=== PATIENT | male | born 1965 | race Hispanic/Latino ===

== ENCOUNTER 2018-04-02 09:34 | Outpatient (CLI) | payer BC ==
--- NOTE | 2018-04-02 10:43 | Cat Scan Report ---
FINAL REPORT EXAM: CT ABDOMEN PELVIS WO CON HISTORY: HEMATURIA TECHNIQUE: CT of the abdomen and pelvis without IV contrast. Coronal and sagittal reconstructed imaging provided. PRIORS: None currently available. FINDINGS: ABDOMEN: Liver, gallbladder, stomach, spleen, pancreas, and adrenals are unremarkable. Kidneys: Unremarkable. No hydronephrosis. No nephroureteral stones. No perinephric stranding. There is no abdominal aortic aneurysm. Mild atherosclerotic disease noted. IVC is unremarkable. There is no periaortic or retroperitoneal adenopathy or mass. Plax-zb-[id number] stool. No wall thickening or inflammatory changes. Terminal ilium is unremarkable. Appendix is normal. Small bowel loops are unremarkable. No obstructive pattern. No free air. No free fluid. Mesentery is unremarkable. Fat-containing umbilical hernia without strangulation. PELVIS: Right anterior pelvic residual implant or surgical device noted. Limited CT images of the prostate appears grossly within normal limits. Punctate calcifications. Bladder is unremarkable. No wall thickening. No stone. There is no pelvic mass or adenopathy. Inguinal regions are unremarkable. Bones: No suspicious osseous lesions on this limited examination of the skeleton. Metastatic disease better evaluated with bone scan. IMPRESSION: Right anterior pelvic residual implant or surgical device. Otherwise, no acute findings.
== END 2018-04-02 09:35 | disposition home or self-care (01) ==
LOC: CT 09:34
PROVIDERS: ATTEND Urology
DX: R31.29 Other microscopic hematuria (principal); J45.909 Unspecified asthma, uncomplicated; I10 Essential (primary) hypertension; E78.00 Pure hypercholesterolemia, unspecified; Z87.891 Personal history of nicotine dependence; Z96.0 Presence of urogenital implants; Z98.890 Other specified postprocedural states
CPT/HCPCS: 74176

== ENCOUNTER 2018-05-05 06:01 | Observation (INO) | payer BC ==
[2018-04-29 14:45] LABS: Basophils # (Auto) 0.1 K/mm3 (0.0-0.1); Basophils % (Auto) 0.6 % (0.0-1.8); Eosinophils # (Auto) 0.1 K/mm3 (0.0-0.4); Eosinophils % (Auto) 1.6 % (0.0-4.3); Hemoglobin 16.9 gm/dl (11.8-15.2); Lymphocytes # (Auto) 1.6 K/mm3 (1.2-5.4); Lymphocytes % (Auto) 18.7 % (13.4-35.0); Mean Corpuscular HGB Conc 35 % (32-34); Mean Corpuscular Hemoglobin 31 pg (28-32); Mean Corpuscular Volume 89 fl (84-94); Monocytes # (Auto) 0.9 K/mm3 (0.0-0.8); Monocytes % (Auto) 11.1 % (0.0-7.3); Platelet Count 161 K/mm3 (140-440); Red Blood Count 5.51 M/mm3 (3.65-5.03); Red Cell Distribution Width 12.7 % (13.2-15.2)
[2018-04-29 14:58] LABS: INR 0.95 (0.87-1.13)
[2018-04-29 14:59] LABS: Partial Thromboplastin Time 26.7 Sec. (24.2-36.6)
[2018-04-29 15:04] LABS: Alanine Aminotransferase 23 units/L (7-56); Albumin 4.2 g/dL (3.9-5); BUN/Creatinine Ratio 17; Blood Urea Nitrogen 15 mg/dL (9-20); Calcium 9.2 mg/dL (8.4-10.2); Hemolysis Index 20
[~2018-05-05 06:01] MED LIST: GARAMYCIN/NS 80 MG/100 ML 100 ML IV SCH; VANCOMYCIN PHARMACY TO DOSE IV SCH; VANCOMYCIN/NS 1 GM/250 ML 1 GM/250 ML BAG IV SCH
[2018-05-05] MEDS ORDERED: NACL BACTERIOSTATIC INFILTRATI ONE (06:40)
[2018-05-05] MEDS ORDERED: DILAUDID IV PRN (07:08)
[2018-05-05] MEDS ORDERED: ZOFRAN IV PRN ×2 (07:08→09:54)
[2018-05-05] MEDS ORDERED: PEPCID PO NR (07:16)
[2018-05-05] MEDS ORDERED: NEOSPORIN GU IR ONE ×2 (07:16→08:31)
[2018-05-05] MEDS ORDERED: SUBLIMAZE ONE (07:17)
[2018-05-05] MEDS ORDERED: DIPRIVAN 10 MG/ML IV ONE (07:17)
[2018-05-05] MEDS ORDERED: XYLOCAINE MPF 2% ONE (07:17)
--- NOTE | 2018-05-05 07:26 | Anesthesia Consultation ---
Anesthesia Consult and Med Hx Date of service: 05/05/18 - Airway Anesthetic Teeth Evaluation: Good ROM Head & Neck: Adequate Mental/Hyoid Distance: Adequate Mallampati Class: Class II Intubation Access Assessment: Good - Pulmonary Exam CTA: Yes - Cardiac Exam Cardiac Exam: No Murmur - Pre-Operative Health Status ASA Pre-Surgery Classification: ASA2, ASA3 Proposed Anesthetic Plan: General - Pulmonary Hx Smoking: No Hx Asthma: Yes (INHALER PRN) Hx Sleep Apnea: No (HUE PRE SCREEN HIGH RISK) - Cardiovascular System Hx Hypertension: Yes (X 5 YRS) - Central Nervous System Hx Psychiatric Problems: No - Gastrointestinal Hx Gastroesophageal Reflux Disease: No - Endocrine Hx Renal Disease: No Hx Non-Insulin Dependent Diabetes: No - Hematic Hx Anemia: No - Other Systems Hx Alcohol Use: Yes (SOCIALLY) Hx Substance Use: No Hx Cancer: No Hx Obesity: No
--- NOTE | 2018-05-05 07:26 | Anesthesia Day of Surgery ---
Anesthesia Day of Surgery - Day of Surgery Patient Examined: Yes Patient H&P Reviewed: Yes Patient is NPO: Yes
[2018-05-05] MEDS ORDERED: ZOFRAN ONE (07:52)
[2018-05-05] MEDS ORDERED: NEO SYNEPHRINE/NS Syringe(OR USE) IV ONE ×2 (07:55→08:44)
[2018-05-05] MEDS ORDERED: VERSED IV NR (08:00)
[2018-05-05] MEDS ORDERED: LACTATED RINGERS 1,000 ML IV SCH ×2 (08:00→10:00)
[2018-05-05] MEDS ORDERED: NEURONTIN PO NR (08:00)
[2018-05-05] MEDS ORDERED: DILAUDID ONE (08:17)
[2018-05-05] MEDS ORDERED: NACL 0.9% IR ONE ×2 (08:31)
[2018-05-05] MEDS ORDERED: NEO SYNEPHRINE ONE (09:15)
--- NOTE | 2018-05-05 09:47 | Short Stay Summary ---
Short Stay Documentation Date of service: 05/05/18 - History H&P: obtained from office - Allergies and Medications Current Medications: Allergies No Known Allergies Allergy (Verified 04/29/18 15:23) Home Medications Medication Instructions Recorded Confirmed Last Taken Type Albuterol Sulfate [Ventolin HFA] 2 puff IH Q4H PRN 03/30/16 04/29/18 Unknown History Lisinopril/Hydrochlorothiazide 1 tab PO BID 03/30/16 05/05/18 05/05/18 05:00 History [Lisinopril-Hctz 10-12.5 mg Tab] Pravastatin Sodium 10 tab PO DAILY 03/30/16 05/05/18 05/04/18 History Active Medications Celecoxib (Celebrex) 200 mg PO PREOP NR Stop: 05/05/18 13:00 Last Admin: 05/05/18 07:25 Dose: 200 mg Famotidine (Pepcid) 20 mg PO PREOP NR Stop: 05/05/18 13:00 Last Admin: 05/05/18 07:25 Dose: 20 mg Gabapentin (Neurontin) 300 mg PO PREOP NR Stop: 05/05/18 13:00 Last Admin: 05/05/18 07:25 Dose: 300 mg Hydromorphone HCl (Dilaudid) 0.5 mg IV Q10MIN PRN PRN Reason: Pain , Severe (7-10) Stop: 05/05/18 15:00 Gentamicin Sulfate/Sodium Chloride (Garamycin/Ns 80 Mg/100 Ml) 100 mls @ 200 mls/hr IV PREOP JENNIFFER Stop: 05/05/18 23:59 Vancomycin HCl (Vancomycin/Ns 1 Gm/250 Ml) 1 gm in 250 mls @ 167.007 mls/hr IV PREOP JENNIFFER; Protocol Last Admin: 05/05/18 07:05 Dose: 167.007 mls/hr Lactated Ringer's (Lactated Ringers) 1,000 mls @ 100 mls/hr IV DIRECT JENNIFFER Stop: 05/05/18 10:00 Last Admin: 05/05/18 06:50 Dose: 100 mls/hr Lactated Ringer's (Lactated Ringers) 1,000 mls @ 100 mls/hr IV DIRECT JENNIFFER Midazolam HCl (Versed) 2 mg IV PREOP NR Stop: 05/05/18 23:59 Last Admin: 05/05/18 07:28 Dose: 2 mg Ondansetron HCl (Zofran) 4 mg IV ONCE PRN PRN Reason: Nausea And Vomiting Stop: 05/05/18 23:54 Vancomycin HCl (Vancomycin Pharmacy To Dose) 1 each IV PKCONSULT JENNIFFER Stop: 05/05/18 23:59 - Brief post op/procedure progress note Date of procedure: 05/05/18 Pre-op diagnosis: ed, hx of infected IPP Post-op diagnosis: same Procedure: IPP (AMS CXR) 14CM + 2CM RTE Anesthesia: GETA Surgeon: REBEKA BRADFORD Director Trading: AGUSTINA SHARIF Estimated blood loss: minimal Pathology: none Condition: stable - Hospital course Hospital course: PT HAS ABX & PAIN MEDS, & POST OP INFO - Disposition Condition at discharge: Stable Short Stay Discharge Plan Follow up with: GILBERTO GOINS MD [Primary Care Provider] - 7 Days
[2018-05-05] MEDS ORDERED: PROAIR IH PRN (09:48)
[2018-05-05] MEDS ORDERED: AMBIEN PO PRN (09:54)
[2018-05-05] MEDS ORDERED: NARCAN 0.4 MG/1 ML IV PRN (09:54)
[2018-05-05] MEDS ORDERED: LISINOPRIL PO SCH (10:00)
[2018-05-05] MEDS ORDERED: VANCOMYCIN PHARMACY TO DOSE IV SCH (10:00)
[2018-05-05] MEDS ORDERED: HYDROCHLOROTHIAZIDE PO SCH (10:00)
--- NOTE | 2018-05-05 10:36 | Operative Report ---
PREOPERATIVE DIAGNOSIS: Erectile dysfunction. 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 PREOPERATIVE DIAGNOSIS: Erectile dysfunction. 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 PROCEDURE: Insertion of inflatable penile prosthesis (AMS 700 CXR 14 cm) with a 2 cm rear tip extenders (complicated) SURGEON: Surinder Sanders M.D. ANESTHESIA: General. LAUNDRY ASSISTANT: Mason Gates. ESTIMATED BLOOD LOSS: Minimal. FLUIDS: Crystalloid. COMPLICATIONS: No complications. INDICATIONS: This patient is a 53-year-old gentleman known to my service. History of erectile dysfunction. The patient had inflatable penile prosthesis placed [address] Wise. Had done well for years. He presented to my office with impending penile erosion. We discussed options and plans to revise his device; however, he eroded distally on the right side requiring removal 04/11/2016. He has used a vacuum erection device over the last 7 years. He presents now for reinsertion. Mason Gates was the shop assistant was present throughout the procedure to help with dissection. DESCRIPTION OF PROCEDURE: The patient was taken to the operative suite, placed in a supine position. After adequate general anesthesia, he was prepped and draped in a sterile fashion. Cunha catheter was placed on the operative field. There was obvious the patient had a dense scar tissue in the corporal bodies. Vertical incision was made in the scrotum through the previous surgical scar. Dissection to the corporal bodies were tedious removing fair amount of scar tissue. Metal [place] retractor was used for exposure. A 2-0 Vicryl stay sutures were placed in the corporal bodies, corporotomies were made. Sharp dissection with mets to get through the dense scar tissue was performed. Sequential dilation was attempted. We got up to 9 mm with sounds. At that point, I had to use a Dilamezinsert to dilate distal and proximally on both sides, I was able to get up to a 12 mm. Measurements were taken distally, was found to be 6 cm bilaterally and 10 cm proximally. Therefore due to the scar tissue in size, it was felt best to proceed with CRX device to minimize the risk of distal perforation. A 100 cm reservoir was prepped placed in the retropubic space via the right external ring. Minimal back pressure was noted. Device was then placed in the corporal bodies distally with an aid of a Bakari needle. Due to the concern for scar and weakened proximal tissue, I put a retention suture into the proximal corporal body in the mid aspect of the rear tip clerical and administrative workers and then out the corporal body on both sides. The cylinders were then placed into the corporal bodies. The corporotomies were closed with 2-0 Vicryl in a running fashion. Insufflation of the device revealed adequate erection to a total of 20 mL of saline. Copious irrigation was performed. Adequate hemostasis achieved. The retention proximally suture was then tied bilaterally in an interrupted fashion. The pump was placed in the dependent portion of the scrotum. Pursestring suture was used with 2-0 Vicryl to secure it. The dartos layer was closed with 2-0 Vicryl in a running fashion. Skin was closed with 3-0 Vicryl in interrupted fashion. Collodion was placed and a mummy wrap. The patient tolerated the procedure well and was extubated and taken to recovery room in stable condition. The patient already has Cipro and Crane will be observed overnight and go home tomorrow. JOB# [id number] GEORGE/IRENE HUMMEL
[2018-05-05] MEDS ORDERED: PROVENTIL IH PRN (11:22)
[2018-05-05] MEDS: NORCO 5/325 PO PRN ×2 (11:51→22:52)
--- NOTE | 2018-05-05 12:57 | History and Physical Report ---
History of Present Illness Date of admission: 05/05/18 09:47 Chief complaint: Hypertension History of present illness: 53 YO Male with HTN, HLD, Asthma, ED admitted for surgical intervention for infected penile prosthesis. Consult placed by DR. Sanders for medical management. Pt seen and evaluated upon arrival. Pt denies fever, chills, CP, Palpitations, NVD, Syncope, Trauma, productive cough, or recent ill contacts. No reported nursing events. Pt denies pain as time of exam. Past History Past Medical History: hypertension, hyperlipidemia Past Surgical History: Other (Penile Prosthesis) Social history: , lives with family. denies: smoking, alcohol abuse, prescription drug abuse Family history: hypertension Medications and Allergies Allergies Allergy/AdvReac Type Severity Reaction Status Date / Time No Known Allergies Allergy Verified 04/29/18 15:23 Home Medications Medication Instructions Recorded Confirmed Last Taken Type Albuterol Sulfate [Ventolin HFA] 2 puff IH Q4H PRN 03/30/16 04/29/18 Unknown History Lisinopril/Hydrochlorothiazide 1 tab PO BID 03/30/16 05/05/18 05/05/18 05:00 History [Lisinopril-Hctz 10-12.5 mg Tab] Pravastatin Sodium 10 tab PO DAILY 03/30/16 05/05/18 05/04/18 History Active Meds: Active Medications Acetaminophen/Hydrocodone Bitart ([place] 5/325) 2 each PO Q4H PRN PRN Reason: Pain, Moderate (4-6) Last Admin: 05/05/18 11:51 Dose: 2 each Albuterol (Proventil) 2.5 mg IH Q4HRT PRN PRN Reason: Shortness Of Breath Celecoxib (Celebrex) 200 mg PO PREOP NR Stop: 05/05/18 13:00 Last Admin: 05/05/18 07:25 Dose: 200 mg Famotidine (Pepcid) 20 mg PO PREOP NR Stop: 05/05/18 13:00 Last Admin: 05/05/18 07:25 Dose: 20 mg Gabapentin (Neurontin) 300 mg PO PREOP NR Stop: 05/05/18 13:00 Last Admin: 05/05/18 07:25 Dose: 300 mg Hydrochlorothiazide (Hctz) 12.5 mg PO QDAY JENNIFFER Hydromorphone HCl (Dilaudid) 0.5 mg IV Q10MIN PRN PRN Reason: Pain , Severe (7-10) Stop: 05/05/18 15:00 Last Admin: 05/05/18 10:16 Dose: 0.5 mg Hydromorphone HCl (Dilaudid) 2 mg IV Q4H PRN PRN Reason: Pain , Severe (7-10) Gentamicin Sulfate/Sodium Chloride (Garamycin/Ns 80 Mg/100 Ml) 100 mls @ 200 mls/hr IV PREOP JENNIFFER Stop: 05/05/18 23:59 Vancomycin HCl (Vancomycin/Ns 1 Gm/250 Ml) 1 gm in 250 mls @ 167.007 mls/hr IV PREOP JENNIFFER; Protocol Last Admin: 05/05/18 07:05 Dose: 167.007 mls/hr Lactated Ringer's (Lactated Ringers) 1,000 mls @ 100 mls/hr IV DIRECT JENNIFFER Vancomycin HCl (Vancomycin/Ns 1 Gm/250 Ml) 1 gm in 250 mls @ 166.667 mls/hr IV Q12H JENNIFFER Stop: 05/05/18 21:29 Lisinopril (Zestril) 10 mg PO QDAY JENNIFFER Midazolam HCl (Versed) 2 mg IV PREOP NR Stop: 05/05/18 23:59 Last Admin: 05/05/18 07:28 Dose: 2 mg Naloxone HCl (Narcan 0.4 Mg/1 Ml) 0.1 mg IV Q2MIN PRN PRN Reason: Res Rate </= 8 or 02 SAT < 92% Ondansetron HCl (Zofran) 4 mg IV ONCE PRN PRN Reason: Nausea And Vomiting Stop: 05/05/18 23:54 Ondansetron HCl (Zofran) 4 mg IV Q8H PRN PRN Reason: N/V unrelieved by Reglan Pravastatin Sodium (Pravachol) 20 mg PO HS JENNIFFER Vancomycin HCl (Vancomycin Pharmacy To Dose) 1 each IV PKCONSULT JENNIFFER Stop: 05/05/18 23:59 Zolpidem Tartrate (Ambien) 5 mg PO QHS PRN PRN Reason: Insomnia Review of Systems Constitutional: no weight loss, no weight gain, no fever, no chills Ears, nose, mouth and throat: no ear pain, no ear discharge, no tinnitis, no decreased hearing, no nose pain Cardiovascular: no chest pain, no orthopnea, no palpitations, no rapid/ irregular heart beat, no edema, no syncope Respiratory: no cough, no cough with sputum, no excessive sputum, no hemoptysis , no shortness of breath, no dyspnea on exertion Gastrointestinal: no abdominal pain, no nausea, no vomiting, no diarrhea, no constipation, no change in bowel habits Genitourinary Male: no hematuria, no flank pain, no discharge, no urinary frequency, no urinary hesitancy, no nocturia Rectal: no pain, no incontinence, no bleeding, no itching Musculoskeletal: no neck stiffness, no neck pain, no shooting arm pain, no arm numbness/tingling, no low back pain, no shooting leg pain Integumentary: no rash, no pruritis, no redness, no sores, no wounds, no jaundice Neurological: no head injury, no transient paralysis, no paralysis, no weakness Psychiatric: no anxiety, no memory loss, no change in sleep habits, no sleep disturbances, no insomnia, no hypersomnia Endocrine: no cold intolerance, no heat intolerance, no polyphagia, no excessive thirst, no polydipsia, no polyuria, no nocturia Hematologic/Lymphatic: no easy bruising, no easy bleeding, no lymphadenopathy, no lymphedema Allergic/Immunologic: no urticaria, no allergic rhinitis, no wheezing, no persistent infections, no anaphylaxis Exam - Constitutional Vitals: Temp Pulse Resp BP Pulse Ox 97.9 F 77 16 105/58 93 05/05/18 11:08 05/05/18 11:08 05/05/18 11:08 05/05/18 11:08 05/05/18 11:08 General appearance: Present: no acute distress, well-nourished - EENT Eyes: Present: PERRL ENT: hearing intact, clear oral mucosa - Neck Neck: Present: supple, normal ROM - Respiratory Respiratory effort: normal Respiratory: bilateral: CTA - Cardiovascular Heart Sounds: Present: S1 & S2. Absent: rub, click - Extremities Extremities: pulses symmetrical, No edema Peripheral Pulses: within normal limits - Abdominal General gastrointestinal: Present: soft, non-tender, non-distended, normal bowel sounds Male genitourinary: Present: normal - Integumentary Integumentary: Present: clear, warm, dry - Musculoskeletal Musculoskeletal: gait normal, strength equal bilaterally - Psychiatric Psychiatric: appropriate mood/affect, intact judgment & insight - Neurologic Neurologic: CNII-XII intact, moves all extremities Results - Labs CBC & Chem 7: 04/29/18 14:30 04/29/18 14:30 Assessment and Plan - Patient Problems (1) HTN (hypertension) Current Visit: Yes Status: Acute Qualifiers: Hypertension type: essential hypertension Qualified Code(s): I10 - Essential (primary) hypertension Plan to address problem: Monitor BP q shift, continue antihypertensive therapy (2) HLD (hyperlipidemia) Current Visit: Yes Status: Acute Qualifiers: Hyperlipidemia type: mixed hyperlipidemia Qualified Code(s): E78.2 - Mixed hyperlipidemia Plan to address problem: Continue statin therapy, low cholesterol diet. (3) Asthma Current Visit: Yes Status: Acute Qualifiers: Asthma severity: mild Asthma persistence: intermittent Asthma complication type: uncomplicated Qualified Code(s): J45.20 - Mild intermittent asthma, uncomplicated Plan to address problem: Albuterol nebulizer therapy prn. (4) Erectile dysfunction Current Visit: Yes Status: Acute Plan to address problem: S/P surgical intervention, continue management as per primary team. (5) DVT prophylaxis Current Visit: Yes Status: Acute Plan to address problem: SCD to BLE while in bed.
[2018-05-05] MEDS: DILAUDID IV PRN ×2 (13:44→18:16)
--- NOTE | 2018-05-05 19:36 | Post Anesthesia Evaluation ---
- Post Anesthesia Evaluation Patient Participated: Yes Airway Patent: Yes Stable Respiratory Function: Yes Nausea/Vomiting: No Temp > 96.8F: Yes Pain Manageable: Yes Adequeate Hydration: Yes Anesthesia Complications: No
[2018-05-05] MEDS ORDERED: VANCOMYCIN/NS 1 GM/250 ML 1 GM/250 ML BAG IV SCH (20:00)
[2018-05-05] MEDS ORDERED: PRAVACHOL PO SCH (22:00)
[2018-05-06 00:33] VITALS: BP 100/57
[2018-05-06] MEDS: NORCO 5/325 PO PRN (08:53)
[2018-05-06] MEDS ORDERED: HCTZ PO SCH (10:00)
[2018-05-06] MEDS ORDERED: ZESTRIL PO SCH (10:00)
== END 2018-05-06 11:25 | disposition home or self-care (01) ==
LOC: OR 06:01 → 3B-SURG 09:47
PROVIDERS: ADMIT Urology; ATTEND Urology
DX: N52.9 Male erectile dysfunction, unspecified (principal); I10 Essential (primary) hypertension; E78.5 Hyperlipidemia, unspecified; J45.909 Unspecified asthma, uncomplicated; Z79.899 Other long term (current) drug therapy
CPT/HCPCS: 36415; 54405; 80053; 85025; 85610; 85730; 96365; 96366; 96375; 96376; A9270; C1813; C1814; G0378; J1170; J1580; J2250; J2370; J2405; J2704; J3010; J3370; J7120